=== PATIENT | female | born 2000 | race Caucasian/White ===

== ENCOUNTER → 2021-04-17 19:03 | Observation (INO) ==
[2021-04-17] MEDS: Ringers Solution, Lactated 1,000 ML IVC ONE ×2 (14:35→17:07)
[2021-04-17 18:57] LABS: Bilirubin,Urine Negative (Negative); Blood,Urine Negative (Negative); Clarity,Urine Clear (Clear); Color,Urine Yellow (Yellow); Glucose,Urine (UA) Normal (Normal); Ketones,Urine >150 mg/dL (Negative); Leukocyte Esterase,Urine Negative (Negative); Mucus,Urine Many per lpf (None-Few); Nitrite,Urine Negative (Negative); Protein,Urine 70 mg/dL (Neg-Trace); Specific Gravity,Urine > 1.030 (1.010-1.025); Squamous Epithelial Cell,Urine Few per hpf (None-Few); Urobilinogen,Urine Normal (Normal); WBC,Urine 0-3 per hpf (0-3)
[~2021-04-17 19:03] MED LIST: Ondansetron 4 MG/2 ML VIAL IVP ONE; Ringers Solution, Lactated 1,000 ML ONE
[2021-04-18 00:59] LABS: Candida DNA Not Detected (Not Detect); Gardnerella DNA Not Detected (Not Detect); Trichomonas DNA Not Detected (Not Detect)
== END | disposition home or self-care (01) ==
LOC: 1NENULAB
PROVIDERS: ADMIT Registered Nurse; ATTEND Registered Nurse

== ENCOUNTER 2021-05-23 10:57 | Inpatient (IN) ==
[2021-05-23] MEDS ORDERED: Ondansetron 4 MG/2 ML VIAL IVP PRN (13:23)
[2021-05-23] MEDS ORDERED: Naloxone 0.4 MG/ML INJ IVP PRN (13:23)
[2021-05-23] MEDS ORDERED: Metoclopramide 10 MG/2 ML VIAL IVP PRN (13:23)
[2021-05-23] MEDS ORDERED: *HR* Nalbuphine 10 MG/ML AMPUL IV PRN (13:23)
[2021-05-23] MEDS ORDERED: Azithromycin 500 MG in 0.9 % Sodium Chloride 250 ML IVPB PRN (13:23)
[2021-05-23] MEDS ORDERED: Famotidine 20 MG/2 ML VIAL IVP PRN (13:23)
[2021-05-23] MEDS ORDERED: Ringers Solution, Lactated 1,000 ML IVC SCH (13:30)
[2021-05-23 14:09] LABS: Basophils % 0.2 %; Eosinophils # 0.1 K/mcL (0.0-0.6); Eosinophils % 0.4 %; Hematocrit 39.3 % (35.3-44.9); Hemoglobin 13.2 g/dL (11.5-15.4); Immature Granulocytes % 0.7 % (0-4); Lymphocytes # 1.7 K/mcL (0.6-4.6); Lymphocytes % 12.5 %; Mean Corpuscular HGB Conc 33.6 g/dL (31.6-35.5); Mean Corpuscular Hemoglobin 29.4 pg (28.0-33.3); Mean Corpuscular Volume 87.5 fL (83.0-100.0); Mean Platelet Volume 10.7 fL (9.4-12.4); Monocytes # 1.1 K/mcL (0.0-1.3); Monocytes % 7.9 %; Neutrophils # 10.6 K/mcL (1.6-8.9); Platelet Count 288 K/mcL (140-400); Red Blood Count 4.49 M/mcL (3.82-4.97); Red Cell Distribution Width 14.6 % (11.5-14.5); Segmented Neutrophils % 78.3 %; White Blood Count 13.5 K/mcL (4.3-11.1)
[2021-05-23] MEDS ORDERED: Ropivacaine/PF 0.2% 20 ML VIAL ONE (14:10)
[2021-05-23] MEDS ORDERED: *HR* FentaNYL (PF) 100 MCG/2 ML VIAL ONE (14:10)
[2021-05-23] MEDS ORDERED: Oxytocin 20 units/ LR 1000 mL 20 UNIT/1,000 ML BAG IVC ONE (14:48)
[2021-05-23] MEDS ORDERED: *HR* Oxytocin 10 UNIT/ML VIAL IVC ONE (15:14)
[2021-05-23] MEDS ORDERED: Oxytocin 20 units/ LR 1000 mL 20 UNIT/1,000 ML BAG IVC SCH (15:49)
[2021-05-23] MEDS ORDERED: Ondansetron ODT 4 MG TAB.RAPDIS SL PRN (15:49)
[2021-05-23] MEDS ORDERED: Benzocaine/Menthol 56 GM AEROSOL SPRAY TP PRN (15:49)
[2021-05-23] MEDS ORDERED: Acetaminophen 325 MG TABLET PO SCH (15:49)
[2021-05-23] MEDS ORDERED: Lanolin 7 G OINT...G. TP PRN (15:49)
[2021-05-23] MEDS: Ibuprofen 600 MG TABLET PO SCH (16:05)
[2021-05-23] MEDS ORDERED: Ibuprofen 600 MG TABLET PO SCH (18:29)
[2021-05-23] MEDS: Acetaminophen 325 MG TABLET PO SCH (18:59)
[2021-05-24] MEDS: Ibuprofen 600 MG TABLET PO SCH (02:44)
[2021-05-24] MEDS: Acetaminophen 325 MG TABLET PO SCH ×2 (02:45→08:07)
[2021-05-24 06:46] VITALS: BP 128/70; PULSE 63; TEMP 97.8; O2SAT 98
[2021-05-24] MEDS ORDERED: Prenatal Vit/FA 1 EACH TABLET PO SCH (09:00)
== END 2021-05-24 15:15 | disposition home or self-care (01) | DRG 560 ==
LOC: 1NENULAB → 1NENUOBS 17:33
PROVIDERS: ADMIT Registered Nurse; ATTEND Registered Nurse